=== PATIENT | female | born 1955 | race Caucasian/White ===

== ENCOUNTER 2017-01-01 15:50 | Inpatient (IN) | payer OTHER ==
[~2017-01-01] VITALS: Ht 170.2 cm; Wt 73.0 kg
[2017-01-01] MEDS ORDERED: ASPIRIN 325 MG TAB PO ONE (17:00)
[2017-01-01 17:40] LABS: ADD SCAN DIFF NO
[2017-01-01 17:45] LABS: BASOPHIL # 0.1 10^3/ul (0.0-0.1); EOSINOPHILS # 0.3 10^3/ul (0.0-0.5); EOSINOPHILS % 3.2 % (0.0-7.0); HEMATOCRIT 42.7 % (37.0-47.0); HEMOGLOBIN 14.4 g/dl (12.0-16.0); LYMPHOCYTES # 3.4 10^3/ul (0.8-2.9); LYMPHOCYTES % 39.1 % (15.0-51.0); MEAN CORPUSCULAR HEMOGLOBIN 28.8 pg (29.0-33.0); MEAN CORPUSCULAR HGB CONC 33.7 g/dl (32.0-37.0); MEAN CORPUSCULAR VOLUME 85.4 fl (82.0-101.0); MEAN PLATELET VOLUME 11.1 fl (7.4-10.4); MONOCYTE # 0.6 10^3/ul (0.3-0.9); NEUTROPHIL # 4.3 10^3/ul (1.6-7.5); NEUTROPHILS % 49.5 % (39.0-77.0); PLATELET COUNT 208 10^3/UL (140-415); RED CELL DISTRIBUTION WIDTH 13.9 % (11.5-14.5); WHITE BLOOD COUNT 8.7 10^3/ul (4.8-10.8)
--- NOTE | 2017-01-01 18:00 | RADRPT ---
PROCEDURE: XR Chest. CLINICAL INDICATION: Chest pain. TECHNIQUE: Single frontal view. COMPARISON: None. FINDINGS: The lungs are clear. The heart size is normal. There is no pleural effusion. There is no pneumothorax. IMPRESSION: 1. Normal chest radiograph. RPTAT: QQ .Dashawn Caballero MD, Date Time Electronically viewed and signed by .Dashawn Caballero MD, on 01/01/2017 17:59 .R/
[2017-01-01 18:01] LABS: ALANINE AMINOTRANSFERASE 39 IU/L (13-69); ALBUMIN 5.1 g/dl (3.3-4.9); ALBUMIN/GLOBULIN RATIO 1.96; ALKALINE PHOSPHATASE 54 IU/L (42-121); ANION GAP 15 (8-16); ASPARTATE AMINO TRANSFERASE 24 IU/L (15-46); BILIRUBIN,INDIRECT 0.2 mg/dl (0-1.1); BILIRUBIN,TOTAL 0.2 mg/dl (0.2-1.3); BLOOD UREA NITROGEN 18 mg/dl (7-20); CALCIUM 9.9 mg/dl (8.4-10.2); CARBON DIOXIDE 25 mmol/L (21-31); CHLORIDE 101 mmol/L (97-110); GLUCOSE 91 mg/dl (70-220); POTASSIUM 3.9 mmol/L (3.5-5.1); SODIUM 137 mmol/L (135-144); TOTAL PROTEIN 7.7 g/dl (6.1-8.1)
[2017-01-01 18:15] LABS: TROPONIN-I < 0.012 ng/ml (0.00-0.12)
[2017-01-01] MEDS ORDERED: NALT1TAB PO (18:34)
[2017-01-01] MEDS ORDERED: LEVO75TA5 PO (18:34)
[2017-01-01] MEDS ORDERED: ATOR10TA65 PO (18:35)
[2017-01-01] MEDS ORDERED: SOLI10TA5 PO (18:35)
[2017-01-01] MEDS ORDERED: VALS1TAB80 PO (18:36)
[2017-01-01] MEDS ORDERED: LIRA0.6P2 SQ (18:36)
[2017-01-01] MEDS ORDERED: ASPI-664 PO (18:51)
[2017-01-01 19:01] VITALS: TEMP 97.9
--- NOTE | 2017-01-01 19:36 | ERA ---
ER Documentation Chief Complaint Date/Time DATE: 01/01/17 TIME: 19:22 Chief Complaint HEAVYNESS BOTH SHOULDERS, APPEARS ANXIOUS HPI 61-year-old woman presents with pressure-like discomfort to the anterior shoulders bilaterally associated with dizziness beginning this morning when she woke up. Symptoms lasted for about 15-20 minutes and resolved gradually. The discomfort radiated down both arms. She denies previous similar episodes, denies chest pressure or shortness of breath, no fevers or chills, no vomiting or diarrhea. Patient has a positive family history of myocardial infarction in father in his 30s and her paternal grandfather in his early 40s. ROS All systems reviewed and are negative except as per history of present illness. Medications Home Meds Reported Medications Aspirin* (Aspirin* EC) 81 Mg Tablet.dr, 81 MG PO DAILY, TAB 01/01/17 Liraglutide (Victoza 3-Mitchel) 0.6 Mg/0.1 Ml Pen.injctr, 0.6 MG SQ QAM, SYR 01/01/17 Valsartan-Hydrochlorothiazide (Valsartan-HCTZ) 320-12.5 Mg Tablet, 1 TAB PO DAILY, #30 TAB 01/01/17 Solifenacin* (Vesicare*) 10 Mg Tablet, 10 MG PO DAILY, TAB 01/01/17 Atorvastatin Calcium (Atorvastatin Calcium) 10 Mg Tablet, 10 MG PO QHS, #30 TAB 01/01/17 Levothyroxine Sodium* (Levothyroxine Sodium*) 75 Mcg Tablet, 75 MCG PO BEFORE BREAKFAST, #30 TAB 01/01/17 Naltrexone HCl/Bupropion HCl (Contrave ER 8-90 mg Tablet) 1 Each Tablet.er, 2 TAB PO BID, TAB 01/01/17 Allergies Allergies: Coded Allergies: amoxicillin (Verified Allergy, Mild, SOB, 01/01/17) Uncoded Allergies: ERYTHROMYCIN (Allergy, Mild, 01/01/17) PMhx/Soc Hypertension, hypothyroidism History of Surgery: Yes () Anesthesia Reaction: No Hx Neurological Disorder: No Hx Respiratory Disorders: No Hx Cardiac Disorders: Yes (HTN, HYPERLIPIDS) Hx Psychiatric Problems: No Hx Miscellaneous Medical Probl: No Hx Alcohol Use: No Hx Substance Use: Yes (MARAJUNA) Hx Tobacco Use: No Smoking Status: Never smoker FmHx Family History: No diabetes Physical Exam Vitals Vital Signs Date Time Temp Pulse Resp B/P Pulse Ox O2 Delivery O2 Flow Rate FiO2 01/01/17 19:01 97.9 83 16 150/94 100 01/01/17 15:55 98.0 96 18 137/86 99 Physical Exam GENERAL: Well-developed, well-nourished, well-hydrated, in no apparent distress , looks nontoxic in appearance HEENT: Moist mucous membranes, pink conjunctiva, no cervical spine tenderness or step-off deformities, no goiter, no jaundice or icterus, extraocular movements intact without pain. No submandibular induration, and no pharyngeal erythema NEURO: Alert and oriented 3, cranial nerves II through XII intact bilaterally, pupils equal round reactive to light, no focal deficits or facial asymmetry, sensation intact distally Strength 5/5 in upper and lower extremities bilaterally CARDIAC: Regular rate and rhythm, no murmurs rubs or gallops LUNGS: Clear bilaterally no wheezing crackles or stridor ABDOMEN: Soft nontender, no guarding, no rigidity, no rebound, no psoas sign no obturator sign. Normoactive bowel sounds SKIN: Warm and dry to touch, no abrasions, contusions, or hematomas, no lacerations, no ecchymosis, no target lesions, and without ulcers EXTREMITIES: No clubbing cyanosis or edema, calves are bilaterally symmetrical, no Homans sign, no popliteal cord sign. Distal pulses equal and bilateral PSYCH: Normal affect without agitation or irritability Result Diagram: 01/01/17 1735 01/01/17 1735 Results 24 hrs Laboratory Tests Test 01/01/17 17:35 White Blood Count 8.710^3/ul Red Blood Count 5.0010^6/ul Hemoglobin 14.4g/dl Hematocrit 42.7% Mean Corpuscular Volume 85.4fl Mean Corpuscular Hemoglobin 28.8pg Mean Corpuscular Hemoglobin Concent 33.7g/dl Red Cell Distribution Width 13.9% Platelet Count 38759^3/UL Mean Platelet Volume 11.1fl Neutrophils % 49.5% Lymphocytes % 39.1% Monocytes % 7.0% Eosinophils % 3.2% Basophils % 1.0% Nucleated Red Blood Cells % 0.0/100WBC Neutrophils # 4.310^3/ul Lymphocytes # 3.410^3/ul Monocytes # 0.610^3/ul Eosinophils # 0.310^3/ul Basophils # 0.110^3/ul Nucleated Red Blood Cells # 0.010^3/ul Sodium Level 137mmol/L Potassium Level 3.9mmol/L Chloride Level 101mmol/L Carbon Dioxide Level 25mmol/L Anion Gap 15 Blood Urea Nitrogen 18mg/dl Creatinine 0.80mg/dl Glucose Level 91mg/dl Calcium Level 9.9mg/dl Total Bilirubin 0.2mg/dl Direct Bilirubin 0.00mg/dl Indirect Bilirubin 0.2mg/dl Aspartate Amino Transf (AST/SGOT) 24IU/L Alanine Aminotransferase (ALT/SGPT) 39IU/L Alkaline Phosphatase 54IU/L Troponin I < 0.012ng/ml Total Protein 7.7g/dl Albumin 5.1g/dl Globulin 2.60g/dl Albumin/Globulin Ratio 1.96 Lipase 119U/L Current Medications Medications (Trade) Dose Ordered Sig/Ahmet Route PRN Reason Start Time Stop Time Status Last Admin Dose Admin Aspirin (Aspirin) 325 mg ONCE ONCE PO 01/01/17 17:00 01/01/17 17:43 DC Procedures/MDM IV line was established patient was placed on it security engineer rhythm strip revealed a sinus rhythm at about 80 bpm with upright P and T waves. Patient was afebrile. EKG performed, read by me revealed a normal sinus rhythm at 86 bpm, normal axis with a first-degree atrial ventricular block and a FL interval of 208 ms, no concerning ST elevations or depressions noted. Chest X-ray 1V Interpreted by me: Soft Tissue: No acute abnormalities Bones: No acute abnormalities Mediastinum/Cardiac Silhouette/Lungs: No acute abnormalities CBC was normal, electrolytes unremarkable, liver function tests are normal, troponin was negative. I treated the patient here with aspirin 325 mg p.o. for cardioprotective measures. Patient admitted to telemetry setting for continued medical management cardiology consult consultation. Departure Diagnosis: Primary Impression: Chest pain Qualified Code: R07.9 - Chest pain, unspecified type Additional Impression: Hypertension Qualified Code: I10 - Essential hypertension Condition: ALFRED Ansari MD Jan 01, 2017 19:35
[2017-01-02] VITALS (10 sets, daily range): BP systolic 139–155; BP diastolic 71–86; PULSE 75–79; RESP 18–20; Ht 170.2 cm; Wt 73.0 kg
[2017-01-02] MEDS ORDERED: morphine 2 MG INJ IV PRN (01:00)
[2017-01-02] MEDS ORDERED: HYDROCODONE/APAP (5/325) TAB PO PRN (01:00)
[2017-01-02] MEDS ORDERED: ZOLPIDEM 5 MG TAB PO PRN (01:00)
[2017-01-02] MEDS ORDERED: NITROGLYCERIN (SL) 0.4 MG TAB SL PRN (01:00)
[2017-01-02] MEDS ORDERED: ACETAMINOPHEN 325 MG TAB PO PRN (01:00)
[2017-01-02] MEDS ORDERED: ONDANSETRON 4 MG INJ IV PRN (01:00)
[2017-01-02] MEDS ORDERED: DOCUSATE SODIUM 100 MG CAP PO PRN (01:00)
[2017-01-02] MEDS ORDERED: NACL 0.9% 3 ML SYG IV SCH (01:00)
[2017-01-02] MEDS: 1/2 NS + KCL 20 MEQ 1,000 ML IV SCH ×2 (02:14→10:41)
--- NOTE | 2017-01-02 02:33 | HP ---
DATE OF ADMISSION: 01/01/2017 TIME: 11:00 p.m. CHIEF COMPLAINT: Bilateral shoulder pain and weakness. HISTORY OF PRESENT ILLNESS: The patient is a 61-year-old female with a history of hypertension, dys lipidemia and hypothyroidism. The patient states that earlier today she felt this weakness and pain in both of her shoulders. It was associated with some dizziness. She denies any chest pain or any pressure-like sensation in her chest. These symptoms lasted for 15 to 20 minutes and resolved grad ually. Symptoms were in both arms. She denies any previous similar symptoms in the past. She has had no heart attacks in the past. She does have a very strong positive family history of AK in her father's side but the patient has had no strokes or known coronary artery disease in the past. The patient currently states that she is asymptomatic. Of note, the patient states that she cut down on her blood pressure medication earlier today and feels as though that may have contributed to her sy mptoms. PAST MEDICAL HISTORY: Hypertension, dyslipidemia, hypothyroidism. PAST SURGICAL HISTORY: in the remote past. HOME MEDICATIONS: 1. Aspirin. 2. Losartan. 3. Hydrochlorothiazide. 4. VESIcare. 5. Atorvastatin. 6. Synthroid. 7. . 8. Bupropion. ALLERGIES: 1. AMOXICILLIN. 2. ERYTHROMYCIN. FAMILY HISTORY: Patient's father from a heart attack in his mid-30s. Paternal grandfat her in his early 40s. SOCIAL HISTORY: Denies any alcohol, tobacco, or drug abuse. She does smoke marijuana. REVIEW OF SYSTEMS: A 12-point review of systems negative except as in HPI. PHYSICAL EXAMINATION: VITAL SIGNS: Temperature is 97.9, pulse 78, respiratory rate 16, BP is 130/85, saturation 98% on ro om air. GENERAL: No acute distress, alert and oriented. HEENT: Normocephalic, atraumatic. LUNGS: Clear to auscultation. CARDIOVASCULAR: Regular rate and rhythm. ABDOMEN: Nondistended, nontender, soft. EXTREMITIES: No clubbing, cyanosis, or edema. LABORATORY TESTS: White count 8.7, hemoglobin 14.4, platelets 208. Chemistry within normal limits. Troponins are negative. DIAGNOSTICS: Chest x-ray is normal. EKG: Sinus rhythm, first degree AV block, no ST elevations or depressions. ASSESSMENT AND PLAN: 1. Bilateral shoulder pain, weakness. Symptoms not resolved. The patient was concerned for possib le cardiac etiology. Because of patient's strong family history on the paternal side, we will consu lt cardiology. We will trend the troponins with a 2D echo. We will defer stress testing to cardiolo gy. Will put the patient on aspirin and beta catherine while in house. Continue her statin. 2. Hypertension. Continue home medications. 3. Dyslipidemia. Continue statin. 4. Prophylaxis, SCDs. Dictated By: JAYLON HENRY MD BS/NTS Conf#: [id number] DID#: [id number]
[2017-01-02 05:39] LABS: ADD SCAN DIFF NO
[2017-01-02 05:46] LABS: BASOPHIL # 0.1 10^3/ul (0.0-0.1); EOSINOPHILS # 0.4 10^3/ul (0.0-0.5); EOSINOPHILS % 4.4 % (0.0-7.0); HEMATOCRIT 42.3 % (37.0-47.0); HEMOGLOBIN 14.2 g/dl (12.0-16.0); LYMPHOCYTES # 3.3 10^3/ul (0.8-2.9); LYMPHOCYTES % 41.7 % (15.0-51.0); MEAN CORPUSCULAR HEMOGLOBIN 29.2 pg (29.0-33.0); MEAN CORPUSCULAR HGB CONC 33.6 g/dl (32.0-37.0); MEAN PLATELET VOLUME 10.8 fl (7.4-10.4); MONOCYTE # 0.6 10^3/ul (0.3-0.9); NEUTROPHIL # 3.6 10^3/ul (1.6-7.5); NEUTROPHILS % 44.8 % (39.0-77.0); PLATELET COUNT 200 10^3/UL (140-415); RED BLOOD COUNT 4.86 10^6/ul (4.20-5.40); RED CELL DISTRIBUTION WIDTH 13.5 % (11.5-14.5)
[2017-01-02 06:13] LABS: CALCIUM 9.8 mg/dl (8.4-10.2); CHOL/HDL RATIO 2.4 RATIO; CREATININE 0.89 mg/dl (0.44-1.00); MAGNESIUM 2.1 mg/dl (1.7-2.5); PHOSPHORUS 4.5 mg/dl (2.5-4.9); POTASSIUM 4.2 mmol/L (3.5-5.1)
[2017-01-02] MEDS ORDERED: LEVOTHYROXINE 75 MCG TAB PO SCH (07:00)
[2017-01-02] MEDS ORDERED: VALSARTAN 160 MG TAB PO SCH (09:00)
[2017-01-02] MEDS ORDERED: BUPROPION HCL PO SCH (09:00)
[2017-01-02] MEDS ORDERED: NALTREXONE HCL PO SCH (09:00)
[2017-01-02] MEDS ORDERED: HYDROCHLOROTHIAZIDE 12.5 MG CAP PO SCH (09:00)
[2017-01-02] MEDS ORDERED: ASPIRIN (EC) 81 MG TAB PO SCH (09:00)
[2017-01-02] MEDS ORDERED: [UNRECOGNIZED DRUG - OTHER] PO SCH (09:00)
[2017-01-02] MEDS ORDERED: SOLIFENACIN 5 MG TAB PO SCH (09:00)
--- NOTE | 2017-01-02 13:56 | RADRPT ---
Echocardiogram Report Patient Name: BRIANNE AC Gender: Female Date: 1955 Study Date: 02-Jan-2017 Product Development Actuary: [facility] Location: 5549 Ref. Physician: JAYLON HENRY Quality: Adequate Procedures: Transthoracic echocardiogram with complete 2D, M-Mode, and doppler examination. Indications: Chest Pain. 2D/M Mode Doppler Measurement Value Normal Ranges Measurement Value Normal Ranges LVIDd 2D 4.0 3.5 - 5.6 cm AV Peak Howie 1.1 m/sec LVIDs 2D 2.7 2.1 - 4.1 cm AV Peak PG 5.2 mmHg LVPWd 2D 1.0 0.6 - 1.1 cm AI Peak PG 11.0 mmHg IVSd 2D 1.7 0.6 - 1.1 cm AI Peak Howie 1.7 m/sec AoR Diam 2D 2.1 2.0 - 3.7 cm AI PHT 535.2 msec EDV 2D 68.5 cm3 LVOT Peak Howie 0.9 m/sec ESV 2D 20.7 cm3 LVOT Peak PG 3.1 mmHg LA Dimen 2D 4.6 2.3 - 4.0 cm Findings Left Ventricle: Normal left ventricular systolic function. Normal left ventricular cavity size. Sigmoid septum. Ejection fraction is visually estimated at 5560 %. Tissue Doppler/Mitral Doppler indices are consistent with impaired relaxation (Stage I diastolic dysfunction). Right Ventricle: Normal right ventricular size. Normal right ventricular systolic function. Left Atrium: There is mild enlargement of left atrium. Right Atrium: The right atrium is normal in size. Mitral Valve: Mitral valve leaflets appear mildly thickened. Mild mitral annular calcification. Trace mitral regurgitation. Aortic Valve: Aortic cusps appear mildly calcified. Mild aortic valve regurgitation. Tricuspid Valve: Normal appearance and function of the tricuspid valve with trace physiologic regurgitation. Unable to obtain RVSP due to minimal presence of tricuspid regurgitation. Pericardium: There is an anterior echo free space consistent with epicardial fat pad. Aorta: Normal aortic root. IVC: Normal size and normal respiratory collapse consistent with normal right atrial pressure. Conclusions 1.The left ventricle is normal in size and systolic function. 2.Estimated left ventricular ejection fraction of 55-60%. 3.Grade 1 diastolic dysfunction. 4.Mild left atrial enlargement. Electronically Signed By: Ras Azul 02-Jan-2017 13:55:39 -0700 Patient Name: BRIANNE AC Study Date: 02-Jan-[id number]
[2017-01-02] MEDS ORDERED: REGADENOSON 0.4 MG/5 ML SYG IV ONE (14:30)
--- NOTE | 2017-01-02 14:37 | CONS ---
Date/Time of Note Date/Time of Note DATE: 01/02/17 TIME: 14:27 Assessment/Plan Assessment/Plan Chief Complaint/Hosp Course Assessment: Chest pain/bilateral shoulder pain - ruled out for myocardial infarction, possibly due to elevated blood pressures Hypertension with hypertensive heart disease Dyslipidemia - lipids at goal Hypothyroidism Recommendations: -echocardiogram showed LVEF 55-60%, grade 1 diastolic dysfunction -obtain Lexiscan SPECT -continue valsartan 320mg daily and HCTZ 12.5mg daily -continue aspirin 81mg daily -continue atorvastatin 10mg daily Problems: Consultation Date/Type/Reason Admit Date/Time Jan 01, 2017 at 18:39 Type of Consultation: Cardiology Reason for Consultation chest pain Hx of Present Illness The patient is a 61 year-old female with hypertension who presents with bilateral shoulder pain. She woke up yesterday morning with bilateral shoulder and arm pressure that was associated with a headache. Symptoms gradually resolved after 20 minutes, but she had two recurrent episodes throughout the day. Symptoms were unrelated to exertion. She recently decreased her blood pressure medication dose by half after consulting with one of her outpatient providers and being concerned that having low blood pressures may lead to cognitive impairment and dementia. During this hospitalization, her blood pressure was up to 150/94. 14 point review of systems negative other than per HPI. Past Medical History Hypertension Dyslipidemia Hypothyroidism Past Surgical History Cesarian section Family History Significant Family History: heart disease (father with myocardial infarction in his 30s) Social History Alcohol Use: none Smoking Status: Never smoker Drug Use: marijuana Exam/Review of Systems Vital Signs Vitals Vital Signs Date Time Temp Pulse Resp B/P Pulse Ox O2 Delivery O2 Flow Rate FiO2 01/02/17 12:18 78 01/02/17 11:48 97.8 18 139/82 95 01/02/17 07:02 Room Air Exam Constitutional: alert, well developed Psych: nl mood/affect, no complaints Head: atraumatic, normocephalic Eyes: nl conjunctiva, nl lids ENMT: nl external ears & nose, nl nasal mucosa & septum Neck: non-tender, supple, No jvd Respiratory: clear to auscultation, normal air movement Cardiovascular: nl pulses, regular rate and rhythm Gastrointestinal: non-tender, soft Musculoskeletal: nl extremities to inspection, No swelling Extremities: No clubbing, No cyanosis, No edema Neurological: nl mental status, nl speech Results Result Diagram: 01/02/17 0515 01/02/17 0515 Results 24 hrs Laboratory Tests Test 01/01/17 17:35 01/02/17 02:30 01/02/17 05:15 01/02/17 09:30 White Blood Count 8.7 8.0 Red Blood Count 5.00 4.86 Hemoglobin 14.4 14.2 Hematocrit 42.7 42.3 Mean Corpuscular Volume 85.4 87.0 Mean Corpuscular Hemoglobin 28.8 L 29.2 Mean Corpuscular Hemoglobin Concent 33.7 33.6 Red Cell Distribution Width 13.9 13.5 Platelet Count 208 200 Mean Platelet Volume 11.1 H 10.8 H Neutrophils % 49.5 44.8 Lymphocytes % 39.1 41.7 Monocytes % 7.0 8.0 Eosinophils % 3.2 4.4 Basophils % 1.0 1.0 Nucleated Red Blood Cells % 0.0 0.0 Neutrophils # 4.3 3.6 Lymphocytes # 3.4 H 3.3 H Monocytes # 0.6 0.6 Eosinophils # 0.3 0.4 Basophils # 0.1 0.1 Nucleated Red Blood Cells # 0.0 0.0 Sodium Level 137 143 Potassium Level 3.9 4.2 Chloride Level 101 106 Carbon Dioxide Level 25 29 Anion Gap 15 12 Blood Urea Nitrogen 18 19 Creatinine 0.80 0.89 Glucose Level 91 86 Calcium Level 9.9 9.8 Total Bilirubin 0.2 Direct Bilirubin 0.00 Indirect Bilirubin 0.2 Aspartate Amino Transf (AST/SGOT) 24 Alanine Aminotransferase (ALT/SGPT) 39 Alkaline Phosphatase 54 Troponin I < 0.012 < 0.012 < 0.012 Total Protein 7.7 Albumin 5.1 H Globulin 2.60 Albumin/Globulin Ratio 1.96 Lipase 119 Hemoglobin A1c 5.5 Phosphorus Level 4.5 Magnesium Level 2.1 Triglycerides Level 72 Cholesterol Level 154 LDL Cholesterol, Calculated 76 HDL Cholesterol 64 Cholesterol/HDL Ratio 2.4 Free Thyroxine Index 2.55 Thyroxine (T4) 6.9 Triiodothyronine (T3) Uptake 37.0 Medications Medications Current Medications Potassium Chloride/Sodium Chloride (1/2 NS + KCl 20 Meq) 1,000 ml @ 100 mls/hr Q10H IV Last administered on 01/02/17t 02:14; Admin Dose 100 MLS/HR; Start at 00:41 Ondansetron HCl (Zofran Inj) 4 mg Q6H PRN IV NAUSEA AND/OR VOMITING; Start at 01:00 Acetaminophen (Tylenol Tab) 650 mg Q6H PRN PO PAIN LEVEL 1-3 OR FEVER; Start at 01:00 Acetaminophen/ Hydrocodone Bitart (Mcgregor (5/325)) 1 tab Q6H PRN PO MODERATE PAIN LEVEL 4-6; Start 01/02/17 at 01:00 Morphine Sulfate (morphine) 2 mg Q4H PRN IV SEVERE PAIN LEVEL 7-10; Start 01/02 at 01:00 Docusate Sodium (Colace) 100 mg Q12H PRN PO CONSTIPATION; Start 01/02/17 at 01: 00 Zolpidem Tartrate (Ambien) 5 mg QHS PRN PO SLEEP; Start 01/02/17 at 01:00 Nitroglycerin (Nitroglycerin (Sl Tab) 0.4 Mg) 1 tab Q5M PRN SL CHEST PAIN; Start 01/02/17 at 01:00 Aspirin (Halfprin) 81 mg DAILY PO ; Start 01/02/17 at 09:00 Atorvastatin Calcium (Lipitor) 10 mg QHS PO ; Start 01/02/17 at 21:00 Solifenacin (Vesicare) 10 mg DAILY PO ; Start 01/02/17 at 09:00 Valsartan (Diovan) 320 mg DAILY PO Last administered on 01/02/17 09:55; Admin Dose 320 MG; Start 01/02/17 at 09:00 Hydrochlorothiazide (Hydrochlorothiazide) 12.5 mg DAILY PO Last administered on 01/02/17 09:55; Admin Dose 12.5 MG; Start 01/02/17 at 09:00 RADHA ALMANZA MD Jan 02, 2017 14:37
[2017-01-02] MEDS ORDERED: REGADENOSON 0.4 MG/5 ML SYG ONE (15:35)
--- NOTE | 2017-01-02 17:21 | RADRPT ---
PROCEDURE: Lexiscan myocardial perfusion study CLINICAL INDICATION: 61 -year-old patient complaining of chest pain. TECHNIQUE: Lexiscan 0.4 mg intravenously separate acquisition gated myocardial perfusion SPECT usi ng Tc 99m Myoview 32.1 mCi intravenously at stress and Tc-99m Myoview, 10.6 mCi intravenously at res t was performed using the rest/stress sequence. Poststress Myoview SPECT images were obtained in th e supine position. COMPARISON: No prior studies. FINDINGS: Perfusion images reveal no evidence of perfusion defects. Lexiscan post stress gated SPECT images demonstrate no wall motion abnormalities. IMPRESSION: 1. No evidence of perfusion defects. 2. No wall motion abnormalities. 3. The left ventricle ejection fraction at stress is 60%. A call report was made to Dr. Azul at 05:18 p.m. on January 02, 2017. PTAT: HH .Marlyn Ontiveros MD, Date Time Electronically viewed and signed by .Marlyn Ontiveros MD, MD on 01/02/2017 17:21 .L/
--- NOTE | 2017-01-02 18:02 | PDOCDIS ---
Discharge Instructions CONDITION Patient Condition: Stable HOME CARE INSTRUCTIONS: Diet Instructions: Low Fat /Cholesterol ACTIVITY: Activity Restrictions: Slowly Increase Activity FOLLOW UP/APPOINTMENTS Follow-up Plan Please take your medications as prescribed, and see your dinkey engineer and primary care doctor in the clinic in 3-5 days for follow up. If you experience any further chest pain or other symptoms, please call your doctor, go to the ER, or call 911. FRED MARTIN Jan 02, 2017 18:02
--- NOTE | 2017-01-02 18:46 | DS ---
DATE OF ADMISSION: 01/01/2017 DATE OF DISCHARGE: 01/02/2017 This is a 61-year-old female originally admitted on 01/01/2017, being discharged home after clearanc e from cardiology team on 01/02/2017. The patient came in with bilateral shoulder pain and weakness . She has a prior history of hypertension, high cholesterol and hypothyroidism. She was admitted t o telemetry floor, seen by cardiology team. She underwent an echocardiogram that showed ejection fr action of 55% to 60%. There was some grade I diastolic dysfunction, mild left atrial enlargement. The left ventricle is normal in size and normal systolic function. The patient was admitted. She r uled out for acute coronary syndrome as her troponins were negative x3. Her blood pressure was care fully monitored as well. She underwent a nuclear stress test. The imaging studies showed no eviden ce of any perfusion defects, no wall motion abnormalities, left ventricle ejection fraction at stres s was 60%, and after the cardiology team cleared the patient based on the stress test results, the p atient will be discharged home today in improved condition and be given strict return precautions in the event she develops any further chest pain or dizziness symptoms or other symptoms that are abno rmal. She has been instructed to call her primary care doctor, her child life therapist, 911 or go to the E R in the event the symptoms occur, but the plan is for her to go home today with the following medic ations: 1. Aspirin 81 mg daily. 2. Atorvastatin 10 mg at bedtime. 3. Levothyroxine 75 mcg every morning. 4. Victoza 3 pack of 0.6 mg subq q.a.m. 5. ____90 mg 2 tabs p.o. b.i.d. 5. VESIcare 10 mg daily. 6. Valsartan/hydrochlorothiazide 320/12.5 mg 1 tab daily. She will need to follow up as mentioned above with her primary care doctor and cardiology doctor in the clinic in the next 3 to 5 days. FINAL DIAGNOSES: 1. Chest pain, bilateral shoulder pain, ruled out for acute coronary syndrome, possibly musculoskel etal in origin or secondary to elevated blood pressures, now improved. 2. Essential hypertension, improved. 3. High cholesterol. 4. Hypothyroidism. Time spent discharging patient 40 minutes. Dictated By: FRED KENNEDY/DEBBY Conf#: [id number] DID#: [id number]
[2017-01-02] MEDS ORDERED: ATORVASTATIN 10 MG TAB PO SCH (21:00)
--- NOTE | 2017-01-04 18:51 | CARRPT ---
DATE OF PROCEDURE: 01/02/2017 PROCEDURE: Lexiscan stress SPECT. INDICATION: Chest pain. FINDINGS: Baseline heart rate 78 beats per minute. Peak stress heart rate 109 beats per minute. Baseline blood pressure 153/86. Peak stress blood pressure 135/76. Baseline EKG showed sinus rhythm with first-degree AV block. Stress EKG showed sinus rhythm with first-degree AV block without acute ischemic changes or arrhythmias. CONCLUSIONS: Normal EKG portion of Lexiscan stress test. Imaging results to be reported separately. Dictated By: RADHA ALMANZA MD SC/NTS Conf#: [id number] DID#: [id number] CC: JAYLON HENRY MD;*EndCC* MTDD
== END 2017-01-02 18:35 | disposition home or self-care (01) | DRG 556 ==
LOC: FTE 15:50 → MS4 18:39
PROVIDERS: ADMIT Internal Medicine; ATTEND Internal Medicine
DX: M25.512 Pain in left shoulder (principal); I11.9 Hypertensive heart disease without heart failure; I10 Essential (primary) hypertension; R07.9 Chest pain, unspecified; M25.511 Pain in right shoulder; Z82.49 Family history of ischemic heart disease and other diseases of the circulatory system; E78.5 Hyperlipidemia, unspecified; E03.9 Hypothyroidism, unspecified; Z79.82 Long term (current) use of aspirin; I44.0 Atrioventricular block, first degree
CPT/HCPCS: 36415; 71010; 78452; 80048; 80053; 80061; 83036; 83690; 83735; 84100; 84436; 84479; 84484; 85025; 93005; 93017; 93306; A9500; A9505; J2405; J2785; J3480